=== PATIENT | male | born 1960 | race Caucasian/White ===

== ENCOUNTER 2016-04-19 11:51 | Emergency (ER) | payer OTHER ==
[2016-04-19] MEDS ORDERED: TRAMADOL HCL 50 MG TABLET ONE (12:46)
== END 2016-04-19 13:01 | disposition home or self-care (01) ==
LOC: ED 11:51
DX: S46.202A Unspecified injury of muscle, fascia and tendon of other parts of biceps, left arm, initial encounter (principal); X50.0XXA Overexertion from strenuous movement or load, initial encounter; Y92.008 Other place in unspecified non-institutional (private) residence as the place of occurrence of the external cause
CPT/HCPCS: 99283 ×2; A9270